=== PATIENT | male | born 2000 | race Caucasian/White ===

== ENCOUNTER 2020-06-11 08:46 | Emergency (ER) | payer BC, SELFPAY ==
--- NOTE | ~2020-06-11 | US_ITS ---
US scrotum doppler INDICATION: Right testicular pain TECHNIQUE: Testicular sonogram utilizing grayscale and color Doppler FINDINGS: The testes are normal in size and appearance. No focal lesions are seen. The right testes measures 4.7 x 2.7 x 3.3 cm centimeters, and the left testis measures 4.8 x 2.6 x 3.5 cm cm. There is normal vascular flow to both testes. The right and left epididymides appear normal. There are bilateral varicoceles. No gross right renal mass large retroperitoneal adenopathy. IMPRESSION: 1. Bilateral varicoceles. Reviewed, dictated and finalized at location A. [facility] INSPECTOR IMPRESSION: 1. Bilateral varicoceles.
[2020-06-11 08:52] VITALS: BP 146/81; PULSE 77; RESP 20; TEMP 36; O2SAT 100
[2020-06-11 09:07] LABS: Add Urine Microscopic? NO; Appearance Urine Clear (Clear); Bilirubin Urine Negative (Negative); Blood Urine Negative (Negative); Color Urine Yellow (Yellow); Glucose Urine UA Negative (Negative); Ketones Urine Negative (Negative); Leukocyte Esterase Ur Negative LEU/UL (Negative); Mucus Urine Rare /lpf; Nitrate Urine Negative (Negative); Protein Urine Negative (Negative); RBC Urine 0-2 /hpf (0-2); Specific Grav Ur 1.016 (1.001-1.035); Urobilinogen Urine Negative mg/dL (<2.0); WBC Urine 0-3 /hpf
[2020-06-11 09:34] LABS: Basophils Absolute Auto 0.1 K/mm3 (0.0-0.1); Basophils Percent Auto 1.4 % (0.2-1.2); Eosinophils Absolute Auto 0.7 K/mm3 (0-0.3); Eosinophils Percent Auto 11.3 % (0-4.4); Hematocrit 35.7 % (42.0-52.0); Hemoglobin 11.1 g/dL (14.0-18.0); Immature Granulocyte Absolute 0.04 K/mm3 (0.00-0.031); Immature Granulocyte Percent A 0.6 % (0-0.5); Lymphocytes Absolute Auto 1.92 K/mm3 (0.9-3.2); Lymphocytes Percent Auto 29.8 % (18.3-44.2); Mean Corpuscular HGB Conc 31.1 g/dl (32-36); Mean Corpuscular Hemoglobin 19.4 pg (26-34); Mean Corpuscular Volume 62.3 fl (80-100); Mean Platelet Volume 9.8 fl (7.4-10.4); Monocytes Absolute Auto 0.6 K/mm3 (0.1-0.6); Monocytes Percent Auto 9.1 % (2.6-8.5); Neutrophils Absolute Auto 3.1 K/mm3 (1.3-6.7); Neutrophils Percent Auto 47.8 % (45.5-73.1); Platelet Count Result 336 k/mm3 (150-375); Red Blood Count 5.73 M/mm3 (4.6-6.20); Red Cell Distribution Width 19.5 % (11.5-14.5); White Blood Count 6.5 K/mm3 (4.5-10.0)
--- NOTE | 2020-06-11 09:44 | ED.GENADULT ---
HPI - General Adult General Chief complaint: Urogenital-Male Stated complaint: abd pain Time Seen by Provider: 06/11/20 08:55 Source: patient History of Present Illness HPI narrative: Patient is a 20 y/o male complaining of right testicular pain for 2 weeks. He describes the pain as being hit. There is no alleviating or exacerbating factor. He rates has pain as 6/10. There is no pain radiation. He has no fever or dysuria. Related Data Allergies Allergy/AdvReac Type Severity Reaction Status Date / Time cephalexin Allergy Unknown Skin Verified 06/11/20 09:00 Reaction Review of Systems Constitutional: Constitutional: Denies chills, Denies fever(s), Denies headache(s) and Denies weakness Eyes: Eyes: Denies blurry vision ENT: Denies headache(s) and Denies neck pain Cardiovascular: Cardiovascular: Denies chest pain and Denies dyspnea Respiratory: Respiratory: Denies cough and Denies dyspnea Gastrointestinal: Gastrointestinal: Denies abdominal pain, Denies diarrhea, Denies nausea and Denies vomiting Genitourinary: Genitourinary: Reports as per HPI, Denies hematuria, Denies dysuria and Reports testicular pain Musculoskeletal: Musculoskeletal: Denies back pain and Denies neck pain Neurologic: Denies headache(s) and Denies weakness [facility] Social History Social History Smoking status: Never smoker Exam Const: General: no acute distress and well developed Orientation/consciousness: oriented to person, oriented to place, oriented to time and patient oriented x3 HENMT: Head: normocephalic Ears: external ears normal General nose exam: Normal external nose present Eyes: General: appearance normal, both eyes and all related structures Conjunctivae: conjunctivae normal Neck: Neck: normal visual inspection and full ROM Chest: Chest palpation & inspection: normal inspection of the chest and no tenderness Resp: Effort & Inspection: normal respiratory effort Auscultation: clear to auscultation bilaterally Cardio: Rate: regular rate Rhythm: regular rhythm GI: GI Palp: No abdominal tenderness and Yes Soft to palpation : Male General Exam: Yes normal external exam Penis: Yes normal penis Testes: testicular tenderness on the right Skin: General skin exam: normal color and turgor normal Neuro: General: oriented to person, oriented to place, oriented to time and patient oriented x3 Cognition (Neuro): normal cognition Extrem: General: normal to inspection, full ROM and no pedal edema Psych: Appearance: grossly normal Mental Status: mental status grossly normal Affect: normal affect Course Vital Signs Vital signs: Vital Signs Temperature 36.0 C L 06/11/20 08:52 Pulse Rate 77 06/11/20 08:52 Respiratory Rate 20 06/11/20 08:52 Blood Pressure 146/81 H 06/11/20 08:52 Pulse Oximetry 100 06/11/20 08:52 Temperature 36.0 C L 06/11/20 08:52 Pulse Rate 76 06/11/20 10:20 Respiratory Rate 20 06/11/20 10:20 Blood Pressure 130/84 06/11/20 10:20 Pulse Oximetry 06/11/20 10:20 Medical Decision Making Vital Signs Vital Signs: Vital Signs Temperature 36.0 C L 06/11/20 08:52 Pulse Rate 77 06/11/20 08:52 Respiratory Rate 20 06/11/20 08:52 Blood Pressure 146/81 H 06/11/20 08:52 Pulse Oximetry 06/11/20 08:52 Temperature 36.0 C L 06/11/20 08:52 Pulse Rate 76 06/11/20 10:20 Respiratory Rate 20 06/11/20 10:20 Blood Pressure 130/84 06/11/20 10:20 Pulse Oximetry 06/11/20 10:20 Lab Data Result diagrams: 06/11/20 09:28 06/11/20 09:28 Labs: Lab Results 06/11/20 06/11/20 06/11/20 Range/Units 08:55 09:28 09:28 WBC 6.5 (4.5-10.0) K/mm3 RBC 5.73 (4.6-6.20) M/mm3 Hgb 11.1 L (14.0-18.0) g/dL Hct 35.7 L (42.0-52.0) % MCV 62.3 L (80-100) fl MCH 19.4 L (26-34) pg MCHC 31.1 L (32-36) g/dl RDW 19.5 H (11.5-14.5) % Plt C
[2020-06-11 10:10] LABS: Anion Gap 4 mmol/L (8-16); Blood Urea Nitrogen 14 mg/dL (9-20); Carbon Dioxide 30 mmol/L (22-30); Chloride 107 mmol/L (98-107); Estimated CRCL calculation 115 ml/min; Estimated Glomerular Filt Rate > 60; Glucose 99 mg/dL (75-110); Potassium 4.5 mmol/L (3.4-5.0); Sodium 141 mmol/L (137-145)
[2020-06-11 10:20] VITALS: BP 130/84; PULSE 76; RESP 20; O2SAT 100
== END 2020-06-11 12:02 | disposition home or self-care (01) ==
PROVIDERS: Emergency Provider Emergency Medicine
DX: N45.1 Epididymitis (principal)
CPT/HCPCS: 36415; 76870; 80048; 81003; 85025; 93976; 99284